=== PATIENT | female | born 1940 | race Caucasian/White ===

== ENCOUNTER 2020-02-20 06:22 | Inpatient (IN) | payer MEDICARE, MEDICAID ==
--- NOTE | 2020-02-19 12:17 | NUR ---
[employer] translation services used to obtained medical history with grinder brake lining Rachael ID # [id number].
[2020-02-20] VITALS (13 sets, daily range): BP systolic 88–142; BP diastolic 42–73
[~2020-02-20] VITALS: Ht 154.9 cm; Wt 54.4 kg
[~2020-02-20 06:22] MED LIST: AMLODIPINE BESY10 MG ORAL; BENICAR40 MG ORAL; LEVOTHYROXINE100 MC1 IV
[2020-02-20] MEDS ORDERED: Lidocaine 1%/ 10mg/ml/EPI 0.01mg/ml 20ml INJ ONE (07:28)
[2020-02-20] MEDS ORDERED: Betadine 10% Oint 30gm TOPIC ONE (07:28)
[2020-02-20] MEDS ORDERED: Bacitracin 50000 Units Vial ONE (07:28)
[2020-02-20] MEDS ORDERED: ProvayBlue 5mg/ml 10ml amp INJ ONE (07:30)
[2020-02-20] MEDS ORDERED: Lidocaine 1% MPF 10mg/ml 5ml ONE (08:54)
--- NOTE | 2020-02-20 08:59 | Anethesia Preoperative Eval ---
Anesthesia Pre-op PMH/ROS General Date of Evaluation: Feb 20, 2020 Time of Evaluation: 08:42 Anesthesiologist: Eileen ASA Score: ASA 3 Mallampati Score Class I : Soft palate, uvula, fauces, pillars visible Class II: Soft palate, uvula, fauces visible Class III: Soft palate, base of uvula visible Class IV: Only hard plate visible Mallampati Classification: Class II Surgeon: Misael Diagnosis: Perineal Floor Subluxing Surgical Procedure: Vaginal Sling, Cystocele Repair Anesthesia History: none Family History: no anesthesia problems Allergies: Coded Allergies: Cat Dander (Verified Allergy, Intermediate, sneezing; watery eyes, 02/19/20) Cultivated Oat Pollen (Verified Allergy, Intermediate, watery eyes ;, 02/19/20) Medications: see eMAR Patient NPO?: Yes Past Medical History Cardiovascular: Reports: HTN, other - HL Gastrointestinal/Genitourinary: Reports: GERD Endocrine: Reports: hypothyroidism PSxH Narrative: Nasal Polyp, Lump R Ear, Cholecystectomy, Thyroidectomy Anesthesia Pre-op Phys. Exam Physician Exam Last Vital Signs Date Time Temp Pulse Resp B/P (MAP) Pulse Ox O2 Delivery O2 Flow Rate FiO2 02/20/20 07:01 98.2 77 18 142/73 (96) 97 Constitutional: NAD Neurologic: CN 2-12 intact Cardiovascular: RRR Respiratory: CTA Gastrointestinal: S/NT/ND Airway Exam Mallampati Score: Class II MO: limited ROM: limited Teeth: missing, intact Anesthesia Pre-op A/P Risk Assessment & Plan Assessment: ASA 3 Plan: GA, SED, GlideScope Status Change Before Surgery: No Pre-Antibiotics Dru Gram Ancef IV Given Within 1 Hr of Incision: Yes Time Given: 09:06 Murtaza Arellano MD Feb 20, 2020 08:59
[2020-02-20] MEDS ORDERED: Hydromorphone 0.5mg/0.5ml inj IVP PRN (09:00)
[2020-02-20] MEDS ORDERED: Midazolam 2mg/2ml Inj IVP PRN (09:00)
[2020-02-20] MEDS ORDERED: Acetaminophen (Non formulary) 100 ML IV ONE (09:00)
[2020-02-20] MEDS ORDERED: HYDROcodone/Acetamin 5/325 tab ORAL PRN (09:00)
[2020-02-20] MEDS ORDERED: LORazepam Inj 2mg/ml 1ml IV PRN (09:00)
[2020-02-20] MEDS ORDERED: Labetalol 5mg/ml 20ml vial IV PRN (09:00)
[2020-02-20] MEDS ORDERED: HYDROcodone/Acetamin 7.5/325 tab ORAL PRN (09:00)
[2020-02-20] MEDS ORDERED: Meperidine 25mg/1ml Inj (FOR RIGORS ONLY) IV PRN (09:00)
[2020-02-20] MEDS ORDERED: Metoclopramide 10mg/2ml Inj IVP PRN (09:00)
[2020-02-20] MEDS ORDERED: Neostigmine 1mg/ml 10ml Inj ONE (09:00)
[2020-02-20] MEDS ORDERED: ceFAZolin sod 1 GM in NS 55 ML IVPB ONE (09:00)
[2020-02-20] MEDS ORDERED: oxyCODONE HCL/Acetaminophen 5/325mg ORAL PRN (09:00)
[2020-02-20] MEDS ORDERED: Atropine Sulfate 0.4mg/ml inj IVP PRN (09:00)
[2020-02-20] MEDS ORDERED: Ketorolac 30mg Inj IV PRN ×3 (09:00→11:00)
[2020-02-20] MEDS ORDERED: Rocuronium Bromide 50mg/5ml Inj IV ONE (09:00)
[2020-02-20] MEDS ORDERED: fentaNYL 100 mcg/2 mL IV PRN (09:00)
[2020-02-20] MEDS ORDERED: LR 1000ml ONE (09:00)
[2020-02-20] MEDS ORDERED: DiphenhydrAMINE 50mg/ml Inj IVP PRN (09:00)
[2020-02-20] MEDS ORDERED: LR 1000ml 1,000 ML IVLG SCH (09:00)
--- NOTE | 2020-02-20 09:19 | Pre-Procedure Note/Attestation ---
Pre-Procedure Note/Attestation Complete Prior to Procedure Planned Procedure: not applicable Procedure Narrative: cystocele repair rectocele repair vaginal sling cystoscopy colposuspension Indications for Procedure Pre-Operative Diagnosis: vaginal prolapse Attestation I attest that I discussed the nature of the procedure; its benefits; risks and complications; and alternatives (and the risks and benefits of such alternatives), prior to the procedure, with the patient (or the patient's legal packaging sales representative). I attest that, if there was a reasonable possibility of needing a blood transfusion, the patient (or the patient's legal packaging sales representative) was given the [facility] standardized written summary, pursuant to the [place] Blood Safety Act ([place] Health and Safety Code # 1645, as amended). I attest that I re-evaluated the patient just prior to the surgery and that there has been no change in the patient's H&P, except as documented below: Shiv Douglas MD Feb 20, 2020 09:19
--- NOTE | 2020-02-20 09:23 | Immediate Post-Op Evaluation ---
Immediate Post-Op Evalulation Immediate Post-Op Evalulation Procedure: Vaginal Sling, Cystocele Repair Date of Evaluation: Feb 20, 2020 Time of Evaluation: 10:59 IV Fluids: 100 LR Blood Products: 0 Estimated Blood Loss: 20 Urinary Output: 200 Blood Pressure Systolic: 91 Blood Pressure Diastolic: 56 Pulse Rate: 79 Respiratory Rate: 16 O2 Sat by Pulse Oximetry: 99 Temperature (Fahrenheit): 98.9 Pain Score (1-10): 2 Nausea: No Vomiting: No Complications 0 Patient Status: awake, reacts, patent, extubated, none Hydration Status: adequate Dru Gram Ancef IV Given Within 1 Hr of Incision: Yes Time Given: 09:06 Murtaza Arellano MD Feb 20, 2020 09:23
[2020-02-20] MEDS ORDERED: Glycopyrrolate 0.2mg/ml 1ml Vial ONE (09:51)
--- NOTE | 2020-02-20 10:49 | Brief Operative Note ---
Immediate Post Operative Note Operative Note Pre-op Diagnosis: vaginal prolapse Procedure: cystocele rectocele repair colposuspension vaginal sling cystoscopy Post-op Diagnosis: prolapse Post-op Diagnosis: same as pre-op Surgeon: Angel Douglas Anesthesia: general Specimen: none Complications: none Condition: stable Fluids: 500 Estimated Blood Loss: minimal Implant(s) used?: No Shiv Douglas MD Feb 20, 2020 10:49
[2020-02-20] MEDS ORDERED: HYDROmorphone 1mg/ml Carpuject IVP PRN (11:00)
--- NOTE | 2020-02-20 12:30 | NUR ---
NURSE NOTES: Received pt from PACU and report from TAB Voss. Pt awake but drowsy, verbally responsive, Turkmen speaking, able to understand Niuean. Pt on NC 2L. Breathing even and unlabored. Denied pain at this time. Skin intact, Endorsed that pt has vaginal packing and will be discharge with it. Noted with Diehl cath draining to gravity. VSS. IV intact and running IVF. Side rails upx2, Bed in low position and locked. Call light and needs within reach. Will continue to monitor.
[2020-02-20 13:45] LABS: ANION GAP 7 mmol/L (5-15); BLOOD UREA NITROGEN 12 mg/dL (7-18); CALCIUM 7.9 MG/DL (8.5-10.1); CARBON DIOXIDE 28 MMOL/L (21-32); CHLORIDE 107 MMOL/L (98-107); CREATININE 0.9 MG/DL (0.55-1.30); POTASSIUM 3.6 MMOL/L (3.5-5.1); SODIUM 141 MMOL/L (136-145)
[2020-02-20 14:02] LABS: HEMATOCRIT 30.7 % (37.0-47.0); HEMOGLOBIN 9.9 G/DL (12.0-16.0); MEAN CORPUSCULAR VOLUME 101 FL (80-99); PLATELET COUNT 239 K/UL (150-450); RED BLOOD COUNT 3.04 M/UL (4.20-5.40); RED CELL DISTRIBUTION WIDTH 11.4 % (11.6-14.8); WHITE BLOOD COUNT 12.6 K/UL (4.8-10.8)
[2020-02-20 14:03] LABS: BASOPHILS % (AUTO) 0.5 % (0.0-2.0); LYMPHOCYTES % (AUTO) 4.4 % (20.0-45.0); MONOCYTES % (AUTO) 2.1 % (1.0-10.0); NEUTROPHILS % (AUTO) 92.8 % (45.0-75.0)
[2020-02-20 14:04] LABS: EOSINOPHILS % (AUTO) 0.2 % (0.0-3.0)
[2020-02-20] MEDS: D5 1/2NS w/KCl 20mEq 1,000 ML IV SCH ×2 (14:08→23:55)
--- NOTE | 2020-02-20 16:00 | NUR ---
NURSE NOTES: noted with low BP 88/50. Dr. Douglas aware. new order to give 500cc bolus and if bp still low give another 500cc bolus. order read back. carrried out.
[2020-02-20] MEDS ORDERED: SYNTHROID50 MCG ORAL (16:34)
[2020-02-20] MEDS: ceFAZolin 2gm/50ml Premix 50 ML IV SCH (17:48)
--- NOTE | 2020-02-20 18:14 | Operative Note - Dictated ---
DATE OF OPERATION: 02/20/2020 PREOPERATIVE DIAGNOSIS: Total vaginal prolapse. POSTOPERATIVE DIAGNOSIS: Total vaginal prolapse. OPERATION: Transvaginal cystocele repair, rectocele repair, colposuspension, vaginal wall sling cystoscopy. OPERATED BY: Shiv Douglas MD ANESTHESIA: General. FINDINGS: Complete vaginal prolapse. INDICATIONS FOR SURGERY: Patient had grade 4 cystocele and rectocele. She underwent urodynamic study that showed significant decrease in voiding capabilities due to vaginal prolapse, otherwise normal. Treatment options were explained to her in great length including all potential complications of surgery. She understands the nature of the procedure and signed the consent. DESCRIPTION OF PROCEDURE: She was brought to the operating room, placed in lithotomy position, prepped and draped in standard fashion under general anesthesia. A Syed retractor was placed. Vagina was retracted and lidocaine was injected in the anterior vagina. Using midline incision, vagina was slowly from the bladder using blunt and sharp dissection. Bladder was moved cephalad. Using Capio device, two sutures were placed in the sacrospinal ligament on both sides. Midurethral strings with self-retention was placed in the midurethra. Additional sutures with Prolene were placed into the cuff of the vagina close to the cervix and bladder was then moved using colposuspension sacrospinal approach cephalad. Excellent anterior support was established. Vagina was trimmed and closed. Cystoscopy was normal showing both ureteral orifices ejecting indigo carmine. After that, the formal rectocele repair was performed with excision of part of the perirectal fascia and reapproximation of a [id number] 2-0 Vicryl sutures. Final cosmetic result was achieved. Sponge count, instrument count was correct. Estimated blood was approximately 100 mL. Patient tolerated procedure well. No evidence of complications. Shiv Douglas M.D. DR: KALEIGH JOB#: [id number] CC:
--- NOTE | 2020-02-20 19:46 | NUR ---
NURSE HAND-OFF: Important Events on Shift:[Post-op, low BP, 500cc bolus given. No N/V, Pain is tolerable, Vaginal Packing in place] Patient Status: [stable] Diet: [clear liquid] Pending Orders: [] Pending Results/Labs:[] Pending MD notification:[] Latest Vital Signs: Temperature 98.2 , Pulse 85 , B/P 111 /67 , Respiratory Rate 18 , O2 SAT 98 , Nasal Cannula, O2 Flow Rate 2.0 . Vital Sign Comment: [low BP] Latest Leyva Fall Score: 35 Fall Risk: Medium Risk Safety Measures: Call light Within Reach, Bed Alarm , Side Rails Side Rails x1, Bed position Low and Locked. Fall Precautions: Patient Fall Education Report given to [TAB Peguero].
--- NOTE | 2020-02-20 20:25 | NUR ---
NURSES NOTE: Report given from TAB Ashley. Rounds completed. Pt is Ivorian speaking but is able to answer questions appropriately. Pt is A/OX4, denies pain or discomfort at this time. No outward s/s of distress noted. Breathing is even and unlabored on 2L nasal canula. 1999 VS check within suitable limits. Low BP previous shift to be monitored. 1999 BP 92/55. 500 cc bolus to be infused if SBP fall <90. Legs elevated to assist with low BP. L FA 20g IV intact, infusing IVF without incident. Toshia pad to be changed. Scant blood noted. Nothing per rectum order. Pt will continue to be monitored. Call light within reach. Bed at lowest level. Addendum: 02/20/20 at 2034 by Marielena Frye RN Diehl in place. Draining to gravity. Urine color tinged green. Urine output day shift 800cc.
[2020-02-20] MEDS: HYDROcodone/Acetamin 5/325 tab ORAL PRN (23:59)
[2020-02-21] VITALS: BP 92/58
--- NOTE | 2020-02-21 00:07 | NUR ---
NURSES NOTE: Pt given 500cc bolus NS for low BP. Final BP 88/58. Other VS WNL. Dr. Douglas called and updated that there was no significant change. Pt is asymptomatic upon assessment. Status reported as well. Asked for new orders if desired.
--- NOTE | 2020-02-21 00:11 | NUR ---
NURSES NOTE: Pt given 500cc bolus NS for low BP. Final BP 88/58. Other VS WNL. Dr. Douglas called and updated that there was no significant change in SBP. Pt is asymptomatic upon assessment. Asymptomatic status reported as well. Asked for new orders if desired.
--- NOTE | 2020-02-21 01:18 | NUR ---
NURSES NOTE: Pt BP 94/60 at 0100 VS check
[2020-02-21] MEDS: ceFAZolin 2gm/50ml Premix 50 ML IV SCH (01:24)
[2020-02-21 04:00] VITALS: BP 91/50
[2020-02-21] MEDS: HYDROcodone/Acetamin 5/325 tab ORAL PRN ×3 (05:38→21:58)
--- NOTE | 2020-02-21 06:44 | NUR ---
NURSE HAND-OFF: Important Events on Shift:[500 cc bolus NS given. SBP went ranged from 88-94.Pt remained asymptomatic. Dr made aware. Message left, Packing removed at 0600] Patient Status: [STABLE] Diet: [REGULAR] Pending Orders: [NONE] Pending Results/Labs:[CBC, BMP] Pending MD notification:[] Latest Vital Signs: Temperature 97.8 , Pulse 64 , B/P 91 /50 , Respiratory Rate 18 , O2 SAT 97 , Nasal Cannula, O2 Flow Rate 2.0 . Vital Sign Comment: [Monitor BP] Latest Leyva Fall Score: 35 Fall Risk: Medium Risk Safety Measures: Call light Within Reach, Bed Alarm Zone 2, Side Rails Side Rails x2, Bed position Low and Locked. Fall Precautions: Yellow Socks Door Sign Patient Fall Education Report given to [].
[2020-02-21 06:48] LABS: BASOPHILS % (AUTO) 0.3 % (0.0-2.0); HEMATOCRIT 25.4 % (37.0-47.0); HEMOGLOBIN 8.1 G/DL (12.0-16.0); LYMPHOCYTES % (AUTO) 12.3 % (20.0-45.0); MEAN CORPUSCULAR VOLUME 102 FL (80-99); MONOCYTES % (AUTO) 9.8 % (1.0-10.0); NEUTROPHILS % (AUTO) 77.6 % (45.0-75.0); PLATELET COUNT 198 K/UL (150-450)
[2020-02-21 07:07] LABS: POTASSIUM 4.1 MMOL/L (3.5-5.1)
--- NOTE | 2020-02-21 07:45 | NUR ---
NURSE NOTES: Report given from TAB Peguero. Pt is A/OX4, able to make needs known. denies pain or discomfort at this time. Breathing is even and unlabored on 2L nasal canula. IV intact, infusing IVF. Toshia pad to be changed. Scant blood noted. Diehl in place draining clear green color. Pt will continue to be monitored. Call light within reach. Bed at lowest level.
[2020-02-21 08:00] VITALS: BP 97/54
--- NOTE | 2020-02-21 08:00 | NUR ---
HAND-OFF: Report given to TAB Ashley
--- NOTE | 2020-02-21 09:45 | NUR ---
PT EVALUATION NOTE Patient seen for initial evaluation and treatment initiated. Patient presents with generalized weakness and pain post-op. Patient requires min assist with bed mobility and transfers. Patient able to take several small sideways steps however declined gait training due to pain. Patient will benefit from skilled inpatient PT intervention to increase overall strength and postural stability for improved activity tolerance and level of functional mobility. Anticipate discharge home once medically cleared by MD. No DME needs identified at this time. Addendum: 02/21/20 at 1228 by BALAJI ARCEO PT Amended: Links added.
[2020-02-21 12:00] VITALS: BP 92/56
--- NOTE | 2020-02-21 12:03 | 48 Hour Post Anesthesia Eval ---
Post Anesthesia Evaluation Procedure: Vaginal Sling, Cystocele Repair Date of Evaluation: Feb 21, 2020 Time of Evaluation: 07:55 Blood Pressure Systolic: 102 0: 56 Pulse Rate: 68 Respiratory Rate: 20 Temperature (Fahrenheit): 97.8 O2 Sat by Pulse Oximetry: 98 Airway: patent Nausea: No Vomiting: No Pain Intensity: 3 Hydration Status: adequate Cardiopulmonary Status: stable Mental Status/LOC: patient returned to baseline Follow-up Care/Observations: n/a Post-Anesthesia Complications: none Follow-up care needed: N/A Srinivas Jones MD Feb 21, 2020 12:03
[2020-02-21] MEDS: D5 1/2NS w/KCl 20mEq 1,000 ML IV SCH ×2 (12:45→21:56)
[2020-02-21 16:00] VITALS: BP 97/55
--- NOTE | 2020-02-21 19:30 | NUR ---
NURSE NOTES: Receive a report from TAB Silva (Olivia). Round is done. Pt is awake and alert. Pain is tolerating. Will provide pain medication as ordered. 16 fr. perez catheter inserted stated and light green urine is patent without hematuria. No dizziness noted in bed. Noted light bloody discharge from vagina after surgery. Call light within reach. Will continue to monitor.
[2020-02-21 20:00] VITALS: BP 99/56
--- NOTE | 2020-02-21 21:30 | NUR ---
NURSE NOTES: Lung sound is clear. No respiratory distress noted. Spo2 94% in RA. Encourage I/S while awake. Will continue to monitor.
[2020-02-22] VITALS: BP 94/61
[2020-02-22 04:00] VITALS: BP 126/71
[2020-02-22] MEDS: HYDROcodone/Acetamin 5/325 tab ORAL PRN ×3 (05:10→15:00)
[2020-02-22] MEDS: D5 1/2NS w/KCl 20mEq 1,000 ML IV SCH (06:26)
[2020-02-22 06:45] LABS: BASOPHILS % (AUTO) 0.9 % (0.0-2.0); EOSINOPHILS % (AUTO) 5.4 % (0.0-3.0); HEMOGLOBIN 8.2 G/DL (12.0-16.0); LYMPHOCYTES % (AUTO) 25.9 % (20.0-45.0); MEAN CORPUSCULAR VOLUME 102 FL (80-99); NEUTROPHILS % (AUTO) 57.7 % (45.0-75.0); PLATELET COUNT 196 K/UL (150-450); RED BLOOD COUNT 2.55 M/UL (4.20-5.40); RED CELL DISTRIBUTION WIDTH 11.9 % (11.6-14.8); WHITE BLOOD COUNT 8.1 K/UL (4.8-10.8)
[2020-02-22 07:10] LABS: ANION GAP 2 mmol/L (5-15); BLOOD UREA NITROGEN 7 mg/dL (7-18); CALCIUM 7.6 MG/DL (8.5-10.1); CARBON DIOXIDE 28 MMOL/L (21-32); CHLORIDE 112 MMOL/L (98-107); CREATININE 0.8 MG/DL (0.55-1.30); POTASSIUM 4.1 MMOL/L (3.5-5.1); SODIUM 142 MMOL/L (136-145)
--- NOTE | 2020-02-22 07:30 | NUR ---
NURSE NOTES: Patient is in bed awake and able to verbalize needs. Stable. Denies severe pain or SOB at this time. Patient repositioned and in semi fowlers. Patient instructed to use call light for assistance, verbalized understanding. f/c patent and draining light green urine output, no clots or cloudiness noted at this time. Patient is in bed in locked and lowest position with call light within reach. All needs met at this time. Will continue to monitor.
--- NOTE | 2020-02-22 07:30 | NUR ---
NURSE HAND-OFF: Important Events on Shift: pain control x2(oral medication), decrease discharge Patient Status: [stable] Diet: [regular] Pending Orders: [-] Pending Results/Labs:[cbc, bmp] Pending MD notification:[-] Latest Vital Signs: Temperature 97.7 , Pulse 71 , B/P 126 /71 , Respiratory Rate 18 , O2 SAT 93 , Room Air, O2 Flow Rate 2.0 . Vital Sign Comment: [] Latest Leyva Fall Score: 35 Fall Risk: Medium Risk Safety Measures: Call light Within Reach, Bed Alarm Zone 2, Side Rails Side Rails x2, Bed position Low and Locked. Fall Precautions: Yellow Socks Door Sign Patient Fall Education Report given to TAB Kwon. Round is done.
[2020-02-22 08:00] VITALS: BP 114/58
--- NOTE | 2020-02-22 08:30 | Consultation ---
DATE OF CONSULTATION: 02/21/2020 INTERNAL MEDICINE CONSULTATION HISTORY OF PRESENT ILLNESS: This is an 79-year-old female who has undergone successful urologic surgery per Dr. Douglas yesterday. The patient underwent transvaginal cystocele repair, rectocele repair, colposuspension, and vaginal wall sling cystoscopy. The patient at this time states she is feeling well although she is reporting pain. PAST MEDICAL HISTORY: Notable for hypertension, hyperlipidemia, osteoporosis, hypothyroidism, history of anemia. MEDICATIONS: Her list of medications included Benicar, Synthroid, Advair, and amlodipine. PAST SURGICAL HISTORY: Cholecystectomy, thyroidectomy, parotid surgery, and sinus surgery. ALLERGIES: None reported. REVIEW OF SYSTEMS: Denies any headaches, hematemesis, melena, or hematochezia. PHYSICAL EXAMINATION: GENERAL: Reveals elderly female. VITAL SIGNS: Blood pressure is 110/60, heart rate 84, respirations 01:14, afebrile. HEENT: Unremarkable. CHEST: Clear breath sounds. ABDOMEN: Soft. EXTREMITIES: There is no edema. NEUROLOGIC: Nonfocal. GENITOURINARY: There is a Diehl catheter in place. LABORATORY DATA: Lab testing shows hemoglobin of 8.1, white count 10,000, platelet count is normal. Glucose 131. IMPRESSION: 1. Postop day #1 status post transvaginal cystocele repair and rectocele repair. 2. Hyperglycemia. 3. Hypothyroidism. 4. History of hypertension. 5. Hyperlipidemia. DISCUSSION: The patient has been hypotensive overnight and received fluids. She is anemic this morning. We will continue gentle physical therapy and advance diet. Keep Diehl in place. IV fluids to continue. Check labs in a.m. Hold antihypertensives. We will follow. Faustino Rocha M.D. DR: Ace JOB#: [id number] CC:
--- NOTE | 2020-02-22 11:21 | Pulmonology Progress Note ---
Subjective Interval Events: None new; still reporting pain Constitutional: Reports: no symptoms HEENT: Repors: no symptoms Respiratory: Reports: no symptoms Cardiovascular: Reports: no symptoms Gastrointestinal/Abdominal: Reports: no symptoms Genitourinary: Reports: no symptoms Allergies: Coded Allergies: Cat Dander (Verified Allergy, Intermediate, sneezing; watery eyes, 02/19/20) Cultivated Oat Pollen (Verified Allergy, Intermediate, watery eyes ;, 02/19/20) Objective Last 24 Hour Vital Signs Date Time Temp Pulse Resp B/P (MAP) Pulse Ox O2 Delivery O2 Flow Rate FiO2 02/22/20 09:00 Room Air 02/22/20 08:00 98.2 69 18 114/58 (76) 95 02/22/20 04:00 97.7 71 18 126/71 (89) 93 02/22/20 00:00 98.1 67 18 94/61 (72) 92 02/21/20 21:00 Room Air 02/21/20 20:00 98.4 70 18 99/56 (70) 97 02/21/20 16:00 98.7 70 18 97/55 (69) 100 02/21/20 13:15 97.8 02/21/20 12:03 68 20 98 02/21/20 12:00 98.4 62 18 92/56 (68) 100 Intake and Output 02/21/20 02/22/20 19:00 07:00 Intake Total 500 ml 1345 ml Output Total 1200 ml 900 ml Balance -700 ml 445 ml Intake Oral 500 ml 250 ml IV Total 1095 ml Output Urine Total 1200 ml 900 ml General Appearance: no acute distress HEENT: normocephalic Respiratory: chest wall non-tender Cardiovascular: normal peripheral pulses, normal rate Abdomen: normal bowel sounds Laboratory Tests 02/22/20 05:00: White Blood Count 8.1, Red Blood Count 2.55L, Hemoglobin 8.2L, Hematocrit 26.0L, Mean Corpuscular Volume 102H, Mean Corpuscular Hemoglobin 32.2H, Mean Corpuscular Hemoglobin Concent 31.6L, Red Cell Distribution Width 11.9, Platelet Count 196, Mean Platelet Volume 6.2L, Neutrophils (%) (Auto) 57.7, Lymphocytes (%) (Auto) 25.9, Monocytes (%) (Auto) 10.0, Eosinophils (%) (Auto) 5.4H, Basophils (%) (Auto) 0.9, Sodium Level 142, Potassium Level 4.1, Chloride Level 112H, Carbon Dioxide Level 28, Anion Gap 2L, Blood Urea Nitrogen 7, Creatinine 0.8, Estimat Glomerular Filtration Rate > 60, Glucose Level 91, Calcium Level 7.6L Current Medications Medications (Trade) Dose Ordered Sig/Tho Route PRN Reason Start Time Stop Time Status Last Admin Dose Admin Acetaminophen (Tylenol) 650 mg Q4H PRN ORAL FEVER 02/20/20 11:00 03/21/20 10:59 Acetaminophen (Tylenol) 650 mg Q6H PRN ORAL Mild Pain (Pain Scale 1-3) 02/20/20 11:00 03/21/20 10:59 Acetaminophen/ Hydrocodone Bitart (Castella 5/325) 1 tab Q4H PRN ORAL Moderate Pain (Pain Scale 4-6) 02/20/20 11:00 02/27/20 10:59 02/22/20 09:27 Dextrose/ Electrolytes 1,000 ml @ 100 mls/hr Q10H IV 02/20/20 14:00 03/21/20 13:59 02/22/20 06:26 Hydromorphone HCl (Dilaudid) 1 mg Q3H PRN IVP pain score 4-6 02/20/20 11:00 02/27/20 10:59 02/20/20 14:19 Ketorolac Tromethamine (Toradol 30mg) 15 mg Q6H PRN IV breakthrough pain 02/20/20 11:00 02/25/20 10:59 Levothyroxine Sodium (Synthroid) 50 mcg BEFORE BREAKFAST ORAL 02/21/20 06:30 03/22/20 06:29 02/22/20 06:26 Ondansetron HCl (Zofran) 4 mg Q6H PRN IVP Nausea & Vomiting 02/20/20 11:00 03/21/20 10:59 Temazepam (RestoriL) 7.5 mg DAILYPRN PRN ORAL Insomnia 02/20/20 11:00 02/27/20 10:59 Assessment/Plan Assessment/Plan IMPRESSION: 1. Postop day #1 status post transvaginal cystocele repair and rectocele repair. 2. Hyperglycemia. Improved 3. Hypothyroidism. 4. History of hypertension. 5. Hyperlipidemia. DISCUSSION: DC IV fluids Keep Diehl in place. DC home if OK with urology Mabel Pyle Omar Syed MD Feb 22, 2020 11:21
[2020-02-22] MEDS ORDERED: LEVOFLOXACIN500 MG ORAL (11:24)
[2020-02-22] MEDS ORDERED: HYDROCODON-ACE1 EA15 ORAL (11:24)
[2020-02-22 12:00] VITALS: BP 135/82
--- NOTE | 2020-02-22 12:02 | NUR ---
NURSE NOTES: RN attempted to call patient's regarding patient's discharge home, no response. Awaiting return call. Per Dr. Douglas, patient's will drive patient home and is aware of all post op instructions.
--- NOTE | 2020-02-22 15:50 | NUR ---
NURSE NOTES: Patient discharged home as ordered. Stable. Patient was assessed by Dr. Douglas and Dr. Rocha prior to discharge. Patient was given thorough discharge instructions by surgeon, all questions and concerns addressed. All teaching reinforced by RN. Patient's will drive patient home. IV removed. Surgical dressing changed. All supplies provided. Medications given to patient. Patient has all belongings. Patient assisted into car without incident.
--- NOTE | 2020-02-24 15:21 | Discharge Summary ---
Discharge Summary Discharge Summary _ DATE OF ADMISSION: 02/20/2020 DATE OF DISCHARGE: 02/22/2020 SURGEON: Dr. Shiv Douglas BINGO CHECKER: Dr. Stas Rocha BRIEF HOSPITAL COURSE: Patient is an 79-year-old female, who has grade 4 cystocele and rectocele. She underwent urodynamic study that showed significant decrease in voiding capab ilities due to vaginal prolapse. She was admitted on 02/20/2020 and underwent transvaginal cystocele repair, rectocele repair, colposuspension and vaginal wall sling cystoscopy. She tolerated procedure well. Surgery was uneventful. Post-operatively, patient was admitted for post-op care. She was closely followed by Dr. Stas Rocha. She was placed on SCDs for DVT prophylaxis and was encouraged use of incentive spirometer. Patient was given pain management. She became hypotensive overnight and received IV fluids. Antihypertensives were placed on hold. Her blood pressure improved. Diet was advanced. Patient was ambulating well with good pain control and was tolerating diet. Diehl catheter draining well. Patient was eventually cleared for discharge home with home health. FINAL DIAGNOSES: Total vaginal prolapse. OPERATION: Transvaginal cystocele repair, rectocele repair, colposuspension, vaginal wall sling cystoscopy. (Refer to Operative Report) DISCHARGE DISPOSITION: Patient was discharged home. DISCHARGE MEDICATIONS: Refer to Medication Reconciliation Sheet. DISCHARGE INSTRUCTIONS: Post-op instructions given. Follow-up in a week. I have been assigned to complete a DC summary on this account, I was not involved with the patient's management.--KARY Astudillo Jacqueline Robles NP Feb 24, 2020 15:21
== END 2020-02-22 15:50 | disposition home health service (06) | DRG 748 ==
LOC: SDSOVERFLO 06:22 → 3E 12:34
PROC: 0USG0ZZ Reposition Vagina, Open Approach (ICD-10-PCS; principal; 2020-02-20 09:00)
PROC: 0JQC0ZZ Repair Pelvic Region Subcutaneous Tissue and Fascia, Open Approach (ICD-10-PCS; principal; 2020-02-20 09:00)
DX: N81.10 Cystocele, unspecified (principal); N81.6 Rectocele; I10 Essential (primary) hypertension; E78.5 Hyperlipidemia, unspecified; E03.9 Hypothyroidism, unspecified; M81.0 Age-related osteoporosis without current pathological fracture; Z90.49 Acquired absence of other specified parts of digestive tract; J45.909 Unspecified asthma, uncomplicated
CPT/HCPCS: 36415; 80048; 85025; 94003; 94150; J2180; J2250; J2405; J2710; U0002